=== PATIENT | female | born 1955 | race Caucasian/White ===

== ENCOUNTER 2025-02-06 15:53 | Emergency (ER) | payer MEDICARE, OTHER ==
--- NOTE | 2025-02-06 16:08 | ERPHSYRPT ---
- History of Present Illness Time Seen by Provider: 02/06/25 16:08 Source: patient, family Exam Limitations: no limitations Physician History: This is an overweight 69-year-old white female patient of Dr. Radford who arrives by private vehicle accompanied by her significant other with the complaint of sharp right foot and ankle pain and swelling over the last 2 days. She did not suffer any traumatic injury or fall. Patient has a history of hypertension and hyperlipidemia. She has no known kidney disease and no known cardiac disease. She has no shortness of breath. She has no cough. She has no clotting or bleeding disorders. Method of Injury: other (No injury) Occurred: days ago (2) Quality: sharpness Severity of Pain-Max: mild Severity of Pain-Current: mild Lower Extremities Pain: foot: right, ankle: right Modifying Factors: Improves With: nothing Associated Symptoms: none Allergies/Adverse Reactions: No Known Drug Allergies Allergy (Verified 02/06/25 16:12) Home Medications: Gabapentin [Neurontin] 300 mg PO DAILY 02/06/25 [History] Losartan/Hydrochlorothiazide [Hyzaar 100-12.5 Tablet] 1 each PO DAILY 02/06/25 [History] Tizanidine HCl [Zanaflex] 2 mg PO DAILY 02/06/25 [History] Travel Risk - International Travel Have you traveled outside of the country in past 3 weeks: No - Emerging Infectious Disease Are you exhibiting symptoms associated with any current EIDs: No - Review of Systems Constitutional: No Symptoms Eyes: No Symptoms Ears, Nose, & Throat: No Symptoms Respiratory: No Symptoms Cardiac: No Symptoms Abdominal/Gastrointestinal: No Symptoms Genitourinary Symptoms: No Symptoms Musculoskeletal: Joint Pain (Right foot and ankle pain with associated swelling) Skin: No Symptoms Neurological: No Symptoms Psychological: No Symptoms Endocrine: No Symptoms Hematologic/Lymphatic: No Symptoms Immunological/Allergic: No Symptoms All Other Systems: Reviewed and Negative - Past Medical History Neurological History: No Pertinent History Cardiac History: High Cholesterol, Hypertension Respiratory History: No Pertinent History Endocrine Medical History: No Pertinent History Musculoskeletal History: Osteoarthritis Other Medical History: PSH: L TKA. PMH: SEE ABOVE - Nursing Vital Signs Nursing Vital Signs: Initial Vital Signs Temperature 97.2 F 02/06/25 16:08 Pulse Rate 94 H 02/06/25 16:08 Respiratory Rate 18 02/06/25 16:08 Blood Pressure 153/88 02/06/25 16:08 O2 Sat by Pulse Oximetry 100 02/06/25 16:08 Pain Scale Pain Intensity 0 - Physical Exam General Appearance: no apparent distress, alert, anxiety, obese Eyes, Ears, Nose, Throat Exam: normal ENT inspection, moist mucous membranes Neck Exam: normal inspection, non-tender, supple, full range of motion Cardiovascular/Respiratory Exam: chest non-tender, no respiratory distress Gastrointestinal/Abdominal Exam: non-tender Back Exam: normal inspection, normal range of motion, No CVA tenderness, No vertebral tenderness Hips Exam: bilateral: non-tender, normal inspection, normal range of motion, no evidence of injury Legs Exam: bilateral leg: non-tender, normal inspection, normal range of motion, no evidence of injury Knees Exam: bilateral knee: non-tender, normal inspection, normal range of motion, no evidence of injury Ankle Exam: right ankle: bone tenderness, soft tissue tenderness, swelling, left ankle: non-tender, normal inspection, bilateral ankle: normal range of motion, no evidence of injury Foot Exam: right foot: bone tenderness, soft tissue tenderness, swelling, left foot: non-tender, normal inspection, bilateral foot: normal range of motion, no evidence of injury Neuro/Tendon Exam: normal sensation, normal motor functions, normal tendon functions, no evidence tendon injury Mental Status Exam: alert, oriented x 3, cooperative Skin Exam: normal color, warm, dry SpO2 Interpretation: normal O2 Delivery: Room Air - Course Nursing assessment & vital signs reviewed: Yes Ordered Tests: Active Orders 24 hr Category Date Time Status ANKLE (3 VIEWS) Stat Exams 02/06/25 16:59 Taken FOOT (MINIMUM 3 VIEWS) Stat Exams 02/06/25 16:59 Taken VENOUS UNILAT/LIMITED EXTREMIT [US] Stat Exams 02/06/25 16:59 Taken - Progress Progress: unchanged Progress Note: 02/06/25 17:45 My medical decision making and the assignment of low complexity to this patient's medical issue today is based on review of the patient's past medical history, review of the patient's medication list, reviewed patient drug allergy list, history present illness and physical findings on examination. The workup in the patient today will be a right lower extremity venous Doppler as well as x-ray of the patient's right ankle and right foot. Differential diagnosis includes but is not limited to right foot and ankle fracture, dislocation, sprain, right lower extremity DVT The venous Doppler of the right lower extremity is negative for deep venous thrombosis per the appointment specialist/technologist. She provided me the preliminary report. I interpreted the preliminary reports on the following x-ray studies. The impression are as follows: The preliminary report of the right ankle shows no acute fracture or dislocation. The preliminary report of the right foot shows no acute fracture or dislocation. The results of my preliminary report were told plus reported to the patient and her spouse. They realized this is only a preliminary report and the final report will be completed tomorrow. If the results are different than what my report is to them, they will receive a communication from the emergency department. Counseled pt/family regarding: diagnosis, need for follow-up, rad results - Departure Departure Disposition: Home Clinical Impression: Swelling of right foot, Right ankle swelling, Swelling of right lower extremity Condition: Stable Critical Care Time: No Referrals: SORIN RADFORD DO [Primary Care Provider] - Follow up/PCP as directed Additional Instructions: Take all your medications as prescribed. Call your primary care provider tomorrow, 02/07/2025, to make arranges for follow-up appointment for further evaluation and management.
[2025-02-06 16:12] VITALS: TEMP 97.2
[2025-02-06 17:03] VITALS: RESP 20; O2SAT 98
[2025-02-06 17:51] VITALS: BP 144/80; PULSE 78
--- NOTE | 2025-02-07 08:39 | XRAY ---
Indication: Pain and swelling. Comparison: None 3 nonweightbearing views right foot demonstrates osteopenia. Tiny spurring posterior/plantar calcaneus and base 5th metatarsal. No other bony, articular, or soft tissue abnormalities.
--- NOTE | 2025-02-07 08:39 | XRAY ---
Indication: Pain and swelling. Comparison: None 3 view right ankle demonstrates osteopenia and tiny heel spurs. No other bony, articular, or soft tissue abnormalities.
--- NOTE | 2025-02-07 08:41 | XRAY ---
Indication: Right leg pain and swelling. Two-dimensional sonogram and color Doppler imaging major venous vessels right leg performed. Comparison: None No thrombus seen in the examined deep venous vessels right leg including greater saphenous vein. Veins demonstrate normal compressibility. Venous waveforms are normal with and without augmentation. Impression: Right leg negative for DVT. Comment: Preliminary report was given.
== END 2025-02-06 18:17 | disposition home or self-care (01) ==
LOC: ED 15:53
DX: M79.89 Other specified soft tissue disorders (principal); M25.571 Pain in right ankle and joints of right foot; M79.671 Pain in right foot; I10 Essential (primary) hypertension; E78.5 Hyperlipidemia, unspecified; Z79.899 Other long term (current) drug therapy
CPT/HCPCS: 73610; 73630; 93971; 99283; 99284